=== PATIENT | male | born 1940 | race Caucasian/White ===

== ENCOUNTER → 2024-02-09 08:58 | Outpatient (REF) | payer OTHER, SELFPAY | LOC: PAVMRI 08:58 | PROVIDERS: ATTENDING PHYSICIAN Physician Assistant Medical; FAMILY PHYSICIAN Family Medicine | DX: M48.062 Spinal stenosis, lumbar region with neurogenic claudication (principal); M54.16 Radiculopathy, lumbar region; M47.896 Other spondylosis, lumbar region | CPT/HCPCS: 72148 ==

== ENCOUNTER 2025-01-19 02:37 | Inpatient (IN) | payer OTHER, SELFPAY ==
[2025-01-19] VITALS (28 sets, daily range): BP systolic 125–239; BP diastolic 63–152; BMI 26.9
[2025-01-19 00:58] LABS: ALT (SGPT) 42 U/L (0-50); AST (SGOT) 41 U/L (17-59); Albumin 4.9 g/dl (3.5-5.0); Alkaline Phosphatase 85 U/L (38-126); Blood Urea Nitrogen 28 mg/dl (9-20); Calcium 10.1 mg/dl (8.4-10.2); Carbon Dioxide 29 mmol/L (22-30); Chloride 103 mmol/L (98-107); Glucose 120 mg/dl (70-99); Potassium 4.2 mmol/L (3.5-5.1); Sodium 139 mmol/L (135-145); Total Protein 7.7 g/dl (6.3-8.2); eGFR > 60.00
--- NOTE | 2025-01-19 00:58 | ED.GENMED ---
History of Present Illness
General
Chief Complaint: Chest Pain
Time Seen by Provider: 01/19/25 00:29
History of Present Illness
History of Present Illness:
84-year-old male with history of spinal stenosis presenting to the emergency department for midsternal chest pressure. Patient reports symptoms started this morning while playing pickle ball. He thought it was indigestion, went away after an
antacid, however returned this evening, worsening quality. Pain is nonradiating. Denies vomiting. Denies shortness of breath. Denies any prior cardiac history. Denies history of hypertension. Denies additional acute medical complaints
Past History
Past History
ED Past Medical History: GERD, Hypercholesterolemia, Other (Osteoarthritis, spinal stenosis, kidney stone) and Other (back pain)
ED Past Surgical History: Orthopedic (Left meniscus surgery, fusion of C4-C5, synovial cyst excision)
Social History
Tobacco: Non-smoker
Alcohol: Occasional
Personal:
Living: with family
Employment: Retired
Family History
Family History: Other (Noncontributory)
Phy Exam
Physical Exam
Physical Exam:
General: Well-appearing, no clinical signs of dehydration, nontoxic and in no acute distress
HEENT: protecting airway, no evidence of cyanosis
Resp: No accessory muscle use, no increased work of breathing, lungs clear to auscultation bilaterally
Abd: No distention
Extremities: No deformities, no swelling
Neuro: alert, no focal neurologic deficit
: deferred
Rectal: deferred
Psych: Normal affect
Skin: Intact
Scores
Heart Score for Chest Pain Patients
STEMI patient?: Yes
Course
Orders/Labs/Results
Orders:
Orders
01/19/25 00:17
Electrocardiogram (*1) Urgent
Reason for Study: Chest Pain
Cardiac Monitoring- Treatment ONCE
EKG- Treatment ONCE
IV Insert/Care/Rem.- Treatment PRN
O2 Therapy [RESP] Urgent
Titrate/Wean O2 to maintain O2 sat greater than (%): 90
Special Instructions: Maintain sats >/=90%
Pulse Ox/spot Check [RESP] Urgent
Quantity: 1
Special Instructions: ON ROOM AIR
01/19/25 00:30
Complete Blood Count/With Diff Urgent
Comprehensive Metabolic Panel Urgent
Troponin I Urgent
01/19/25 00:49
Nitroglycerin 100 mg/250 ml [Nitroglycerin Premix] 100 mg in 250 ml .ROUTE .STK-MED
01/19/25 00:54
Heparin 1000 Units/500 ml [Heparin] 1,000 units in 500 ml .ROUTE .STK-MED
Verapamil Injectable [Isoptin/Verapamil Injection] 5 mg .ROUTE .STK-MED ONE
01/19/25 00:55
Heparin Sodium,Porcine/Ns/Pf [Heparin 2000 Units/1000 ml] 2,000 unit in 1,000 ml .ROUTE .STK-MED
Lidocaine HCl/Pf [Xylocaine-Mpf 1% Vial] 100 mg .ROUTE .STK-MED ONE
Nitroglycerin Sublingual [Nitrostat (Sublingual)] 0.4 mg .ROUTE .STK-MED ONE
Nitroglycerin [Tridil] 1,500 mcg .ROUTE .STK-MED ONE
Ticagrelor [Brilinta] 180 mg .ROUTE .STK-MED ONE
01/19/25 00:56
Aspirin Chewable [Low Strength Aspirin] 324 mg .ROUTE .STK-MED ONE
Heparin 5,000 units .ROUTE .STK-MED ONE
01/19/25 00:57
Midazolam HCl [Versed] 2 mg .ROUTE .STK-MED ONE
01/19/25 00:58
Fentanyl Citrate/Pf [Sublimaze] 100 mcg .ROUTE .STK-MED ONE
Heparin 10,000 units .ROUTE .STK-MED ONE
01/19/25 01:11
Nitroglycerin 100 mg/250 ml [Nitroglycerin Premix] 100 mg in 250 ml .ROUTE .STK-MED
Abnormal Lab Results
01/19/25 01/19/25
00:30 01:19
RBC 4.66 L 10^6/uL
(4.70-6.10)
MCV 95.9 H fL
(80.0-94.0)
MCH 32.8 H pg
(27.0-31.0)
MPV 10.5 H fL
(7.4-10.4)
Absolute Monos (auto) 0.7 H 10^3/uL
(0.1-0.6)
Neutrophils % 41.3 L %
(42.2-75.2)
Monocytes % 10.4 H %
(1.7-9.3)
BUN 28 H mg/dl
(9-20)
Glucose 120 H mg/dl
(70-99)
Troponin I 0.182 H* ng/ml
POC ACT Low Range 285 H Seconds
(116-155)
01/19/25 00:30
01/19/25 00:30
Vital Signs
Initial and Last Documented VS:
Initial Vital Signs
Pulse Resp BP Pulse Ox
58 12 239/97 97
01/19/25 00:27 01/19/25 00:27 01/19/25 00:27 01/19/25 00:27
Last Documented Vital Signs
Pulse Resp BP Pulse Ox
54 13 161/90 95
01/19/25 00:57 01/19/25 00:57 01/19/25 00:57 01/19/25 01:00
MDM/Problems Addressed
MDM/Problems Addressed:
84-year-old male with history of spinal stenosis presenting for midsternal chest pressure. Vital signs on arrival significant for hypertension.
On exam patient resting comfortably. Patient initially evaluated in triage with EKG obtained upon arrival, concerning for STEMI with ST elevation laterally and ST depressions inferiorly. This does appear acutely changed from prior EKG in 2019.
For this reason, STEMI alert was called. Did discuss with cardiology on-call, Dr. Zuniga who will come in to evaluate patient. Patient is markedly hypertensive, however clinically less suspicious for dissection. Will start patient on
aspirin/Brilinta/heparin and start patient on nitro.
00:55 - Cardiology to bedside with patient plan to catheterization lab
*Pulse Oximetry
SaO2: 93
Patient hypoxic: no
*EKG
Interpreted by ED Provider?: Yes
EKG Intrepretation Date: 01/19/25
EKG Intrepretation Time: 00:59
Interpretation: abnormal
Comparison EKG: changes noted
Heart Rate: 59
Rate: normal
Rhythm: sinus
[place]: normal axis
Interval: normal interval
QRS Pattern: normal QRS
Ischemia: ST elevation (laterally with inferior depressions)
*Critical Care Note
Total Time (30-74mins, 75-104mins- exclusive of procedures): Not Applicable
ED Attending Note
-
Portions of this chart may have been created with voice recognition software.� Occasional wrong word or��sound alike� substitutions may have occurred due to the inherent limitations of voice recognition software.
Discharge Plan
Departure
Patient Disposition: Admit
Date of Disposition: 01/19/25
Time of Disposition: 00:38
Presentation/result/management discussed w/ accepting MD/DO: Dr. Lea, cardiology
Patient with high blood pressure during this ER visit?: Yes
Condition: Critical
Discharge Problem:
ST elevation (STEMI) myocardial infarction
Interventions
Interventions:
*Risk Screen - Suicide Last Done: 01/19/25 00:22
*General Assessment Last Done: 01/19/25 00:22
*Neglect/Abuse Screening Last Done: 01/19/25 00:22
*ED- Fall Risk Assessment Last Done: 01/19/25 00:22
*ED COVID-19 Vaccine History Last Done: 01/19/25 00:22
*Nursing Disposition Last Done: 01/19/25 01:12
Discharge Date and Time
Discharge Date/Time: 01/19/25 01:12
[2025-01-19 00:59] LABS: Hematocrit 44.7 % (39.0-52.0); Hemoglobin 15.3 g/dL (13.0-18.0); Mean Corp Hgb Conc. 34.2 g/dL (33.0-37.0); Mean Corpuscular Volume 95.9 fL (80.0-94.0); Nucleated Red Blood Cells % 0 % (-); Platelet Count 179 10^3/uL (130-400); Red Cell Dist. Width 12.9 % (11.5-14.5)
[2025-01-19 01:12] LABS: Troponin I 0.182 ng/ml
[2025-01-19 01:37] LABS: ACT-LR - POC 285 Seconds (116-155)
--- NOTE | 2025-01-19 02:19 | CON.CAR ---
Consultation
Consultation Request
Date/Time Consultation Requested: 01/19/25
Date/Time Consultation Performed: 1230
Requesting Provider: Dr. Yandy Hill
Performing Provider: Dr. Zhou Lea
Reason for Consultation: anterior STEMI
Medical History
-
Chief Complaint: chest pain
History of Present Illness:
84-year-old male with history of spinal stenosis, HLD, GERD, arthritis, presenting to the emergency department for midsternal chest pressure. Patient reports symptoms started this morning while playing pickle ball. He thought it was indigestion, and
after taking an antacid the pain went away. Pain returned this evening at rest and was more severe, prompting him to come to the ED. Pain is nonradiating, constant. He denies N/V, diaphoresis, shortness of breath. Never had similar symptoms before.
Denies tearing sensation or back pain. Denies any prior cardiac history, HTN, HLD, DM. Non smoker.
In the ED he was hypertensive. VS otherwise stable. Initial labs notable for Cr 0.8, Trop 0.182.
EKG sinus with anterior RYAN and inferior reciprocal changes.
He was given heparin bolus, ASA 325, and ticagrelor 180. He given SLNx2 with near complete resolution of pain.
Past Medical History
Past Medical History: GERD and Hypercholesterolemia
Past Surgical History: None
Social History
Tobacco: Non-Smoker
Family History
Family History: Reviewed & Not Pertinent
Allergies / Home Medications
Allergy/AdvReac Type Severity Reaction Status Date / Time
Sulfa (Sulfonamide Allergy Hives Verified 01/19/25 00:21
Antibiotics)
�Medication �Instructions �Recorded �Confirmed �Type
gabapentin 300 mg capsule 300 mg PO HS 12/31/14 09/25/19 History
Tylenol #4 1 tab PO .3XSWEEKLY PRN prior to 09/25/19 09/25/19 History
playing sports
meloxicam 7.5 mg tablet 7.5 mg PO DAILY 09/25/19 09/25/19 History
Review of Systems
-
Cardiac: Chest Pain
Physical Exam
Vital Signs
Pulse Resp BP Pulse Ox
54 13 161/90 95
01/19/25 00:57 01/19/25 00:57 01/19/25 00:57 01/19/25 01:00
Lab Results
01/19/25 00:30
01/19/25 00:30
Troponin I 0.182 ng/ml H* 01/19/25 00:30
Physical Exam
General: No Apparent Distress
Respiratory: Clear
Cardiac: S1/S2 and Regular Rhythm
Skin: Warm
Neuro: AO x 3
Psych: Calm
Impression / Plan
-
84M in good health with HLD but no other CV risk factors presenting with chest pain, elevated troponin, and anterior RYAN. Presentation concerning for acute occlusive OR. Aortic dissection less likely but will consider CTA if cath unrevealing given
severe HTN on initial arrival. Further recommendations to follow pending cath results.
Data Reviewed
-
EKG: Tracing Personally Visualized and interpreted, Report Reviewed by me, Discussed with Physician, Discussed with Nurse, Discussed with Patient and Discussed with Family
Labs: Labs Reviewed by me, Discussed with Physician, Discussed with Nurse, Discussed with Patient and Discussed with Family
Critical Care Time (in minutes): 40
--- NOTE | 2025-01-19 02:28 | ITS.CL.PN ---
Addendum entered and electronically signed by Trevor Lea MD 01/23/25 12:38:
Corrected procedure list to reflect that IVUS of LAD, not iFR of LAD, was performed:
PROCEDURE(S):
1. left heart catheterization
2. coronary angiography
3. IVUS LAD
4. PCI with AHSAN to LAD
Original Note:
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
Procedure
Procedure Note:
CARDIAC CATHETERIZATION REPORT
Date of Procedure: 01/19/2025
Referring: DR. Yandy Hill DO
Indication: anterior STEMI
PROCEDURE(S)
1. left heart catheterization
2. coronary angiography
3. iFR LAD
4. PCI with AHSAN to LAD
ACCESS: 6F right radial artery (closure: radial band)
CATHETERS
1. 6F JR4
2. 6F JL4
3. 6F EBU3.75 guide
MODERATE SEDATION: 60 minutes of moderate sedation was utilized. An independent emergency medical service coordinator was present to assist with and help manage the patient's level of consciousness and physiologic status.
HEMODYNAMIC DATA
LV 151/1 (EDP 23) mmHg
AO 164/69 (mean 103) mmHg
CORONARY ANGIOGRAPHY
Dominance: Right
LM: Large, normal
LAD: Large vessel giving rise to a large D1 and large D2. There is a 100% thrombotic occlusion in the proximal aspect of the D2 with diffuse plaque extending distally and proximally back into the LAD proper. The apical LAD becomes atretic distally
and is totally occluded before the apex. The apex fills via L-L collaterals from the D2 and R-L collaterals from the RPDA.
LCx: Moderate caliber vessel giving rise to a moderate caliber ramus/OM1 and moderate caliber OM2. There is diffuse mild disease.
RCA: Large vessel giving rise to a large RPDA, small RPL1, small RPL2, and moderate caliber RPL3. There is mild ostial disease, a focal mild stenosis at the crux, and a focal 70% stenosis in the distal aspect of the RPDA.
RADIATION: dose 1032 mGy; DAP 45 Gy*cm2; fluoroscopy time 18.1 min
PCI with AHSAN to LAD
Heparin was given to achieve ACT greater than 300. The left main was engaged with a EBU 3.75 guide catheter and a Runthrough wire placed in the D2. Initial lesion preparation was performed with a 2.0 mm semicompliant balloon with full expansion and
jain of distal flow. IVUS was performed demonstrating reference vessel diameter of 3.5-4.0 mm in the LAD and 2.5-3.0 mm in the D2 with diffuse plaque extending back to the ostium of the diagonal and also significant plaque burden in the LAD
extending between D1 and D2. Thus, the decision was made to perform crossover stenting from the LAD into the D2. A protection wire was placed in the apical LAD. A 2.5 x 38 mm Marne Jones drug-eluting stent was deployed followed by proximal
optimization in the LAD with a 3.5 x 8 mm NC balloon. The LAD wire was pulled back and rewired through stent struts. Postdilation of the remainder of the stent within the D2 proper was performed with a 2.5 mm NC balloon to 16 laura. IVUS was then
repeated and demonstrated mild underexpansion and undersizing of the stent in both the diagonal and LAD. Thus, further postdilation was performed with a 2.75 mm NC balloon to 16 laura in the diagonal (20 laura in the midportion of the lesion) and a 4.0
x 6 mm NC balloon in the LAD to 12 laura. Final angiographic result was outstanding. The wire and guide were removed and an additional angiography of the RCA performed to rule out high-grade stenosis in a previously identified tortuous segment with
questionable severe disease. The patient tolerated the procedure well.
CONCLUSIONS
1. Mildly elevated LV filling pressure and no aortic stenosis
2. 100% thrombotic occlusion of the D2 in setting of anterior STEMI
3. Successful PCI with AHSAN to LAD-D2 (2.5x38 mm Pedro Jones post-dilated to 4.0 mm in the LAD and 2.75 mm in the D2).
RECOMMENDATIONS
1. DAPT with ASA/ticagrelor for 1 year
2. Aggressive secondary prevention of coronary artery disease with high intensity statin and additional lipid lower medication to achieve LDL<55
3. Hold beta tima given sinus bradycardia
4. Low dose KARIE inhibitor
5. Further GDMT pending TTE in AM
6. Check lipids, Lp(a), A1c
7. Trend trop to peak
8. Cardiac rehab
Copy to: Dr. Chris Moreira, (PCP)
Signed: Trevor Lea MD, PhD
[2025-01-19 03:28] LABS: Hematocrit 39.2 % (39.0-52.0); Hemoglobin 13.4 g/dL (13.0-18.0); Mean Corp Hgb Conc. 34.2 g/dL (33.0-37.0); Mean Corpuscular Volume 94.5 fL (80.0-94.0); Nucleated Red Blood Cells % 0 % (-); Platelet Count 168 10^3/uL (130-400); Red Cell Dist. Width 13.0 % (11.5-14.5)
[2025-01-19] MEDS: CRESTOR 20 MG PO ×2 (03:29→17:25)
[2025-01-19] MEDS: NSS 1000 IV (03:29)
[2025-01-19 03:39] LABS: Blood Urea Nitrogen 24 mg/dl (9-20); Calcium 9.3 mg/dl (8.4-10.2); Carbon Dioxide 28 mmol/L (22-30); Chloride 105 mmol/L (98-107); Glucose 113 mg/dl (70-99); HDL Cholesterol 37 mg/dl; LDL Cholesterol, Calculated 145 mg/dl; Potassium 4.0 mmol/L (3.5-5.1); Sodium 135 mmol/L (135-145); Very Low Density Lipoprotein 11 mg/dl (0-30); eGFR > 60.00
[2025-01-19 03:56] LABS: Troponin I 0.843 ng/ml
--- NOTE | 2025-01-19 04:12 | PTCARENOTE ---
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 HR SB w/ 1st degree AVB on telemetry. AAOx3. NSS gtt infusing as ordered. R radial band on - R hand initially dusky and cool. Now pink and warm. R radial pulse palpable. Surrounding site soft, no hematoma. Educated
pt on activity restrictions r/t cardiac cath + stent. Labs drawn and sent. EKG obtained. Pt denies any pain.
Pt belongings w/ pt. Pt oriented to hospital and unit. Call bahena within reach.
[2025-01-19] MEDS: NEURONTIN 100 MG PO (05:17)
--- NOTE | 2025-01-19 05:42 | PTCARENOTE ---
Pt remains CP free. Removing air from R radial band as charted in worklist. Surrounding site remains soft, no hematoma. Ecchymosis noted under radial band. R radial pulse palpable.
Pt requesting extra dose of gabapentin for restless legs. Pt states he did take his normal dose of 300mg 01/18 at 1900 but stated that if restless legs 'start up again' in the night, he usually takes an extra dose of gabapentin. 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 Refusing
tylenol, stating 'That will not work'. One time dose 100mg gabapentin ordered and administered.
[2025-01-19] MEDS: ZESTRIL 5 MG PO (08:55)
[2025-01-19 09:08] LABS: ACT-LR - POC > 397 Seconds (116-155)
[2025-01-19 10:03] LABS: Troponin I 8.650 ng/ml
[2025-01-19 10:06] LABS: Glycohemoglobin (HgbA1c) 5.8 % (4.0-5.9)
[2025-01-19] MEDS: BRILINTA 90 MG PO ×2 (10:17→19:45)
--- NOTE | 2025-01-19 10:34 | CM ---
Initial assessment completed with patient who lives with his in a 1 story plus basement ranch home with 2 steps to enter. 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 No DME. No in-home services. Does have HC-POA. Was in the
[employer] but no VA benefits. No psychiatric hospitalizations. PCP is Dr. Rony Churchill with [facility]. Pharmacy is [facility] on [address] in [place]. Discharge POC: Anticipate home with no needs.
--- NOTE | 2025-01-19 10:42 | PTCARENOTE ---
pt oob in chair this am , no complaints of chest pain , following troponin levels , Sinus zainab , sinus rhythm on monitor with PACs , IVU level of care
[2025-01-19] MEDS: LOW STRENGTH ASPIRIN 81 MG PO (11:25)
--- NOTE | 2025-01-19 15:37 | CARDSERVLU ---
Echocardiogram with Lumason completed after protocol screening completed. Allergies verified.
Patent IV site: RT AC
IV site flushed with 0.9% NaCl pre and post administration.
Diluted bolus method utilized to enhance visualization of ventricular ramos.
Total volume given: _3.5__ mL
Patient tolerated all procedures well without complications.
[2025-01-19 15:42] LABS: Troponin I 9.690 ng/ml
--- NOTE | 2025-01-19 16:04 | PTCARENOTE ---
15:00 troponin level of 9.69 , result give to Dr Lea , pt remains asymptomatic
--- NOTE | 2025-01-19 16:34 | PTCARENOTE ---
pt to be transfered to room 2247 , report given to receiving RN
--- NOTE | 2025-01-19 17:11 | PTCARENOTE ---
patient transferred from ICU.monitor placed, SB, VSS. lung sánchez clear on RA o2 sat 98%. right radial dsg. D/I, distal pulse palpable. no edema noted in bilat. lower extremities. patient sitting in chair eating dinner, call bahena within reach.
[2025-01-19] MEDS: NEURONTIN 300 MG PO (19:45)
--- NOTE | 2025-01-19 20:48 | PTCARENOTE ---
Assumed care of patient at change of shift. Ambulating self in room, AAOx4. VSS. Denies any chest pain or SOB. Tele remains SB-SR w/ occasional PACs. Right radial dressing intact, no hematoma noted at this time. CAD packet given, educated pt.
Reviewed POC w/ patient. Call bahena in reach.
[2025-01-20] VITALS (8 sets, daily range): BP systolic 132–165; BP diastolic 74–128
--- NOTE | 2025-01-20 08:00 | PTCARENOTE ---
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
[2025-01-20] MEDS: ZESTRIL 5 MG PO (08:02)
[2025-01-20] MEDS: BRILINTA 90 MG PO ×2 (08:02→20:15)
[2025-01-20] MEDS: LOW STRENGTH ASPIRIN 81 MG PO (08:02)
--- NOTE | 2025-01-20 09:38 | CM ---
Addendum entered by Katherin Samayoa 01/20/25 15:11:
Met with Mr. العلي to review [facility] is only opened tomorrow from 10:00 a.m. to 2:00 p.m. Telephone call to [facility] to inform them Mr. العلي is using the Good Rx Coupon. Faxed the Good Rx. Coupon to [facility]. Mr.. Rod will
ask his spouse to see if she can pick-up the medication today.
Original Note:
Reviewed chart. Met with Mr. العلي to review discharge plans. He states odette is feeling well and maybe able to go hoe soon. He states prior to admission he reside with his spouse in a one story home with a basement. He states he has two steps to
enter. He states prior to admission he was independent with ambulation and adls. He states he does not have ay DME in the home. He states he has a prescription plan and uses [facility]. Telephone call to his insurance to check on coverage for
Brilinta or Ticagrelor. Brilinta is covered by his insurance but his co-pay is $500.00 a month. Ticagrelor is not covered by his insurance. He can use the Good RX coupon for Ticagrelor for $33.00 a month. Reviewed co-pays and Good Rx coupon. He is
agreeable to using the Good Rx coupon. Gave him the Good Rx coupon. Telephone call to [facility] to check if Ticagrelor 90 mg po bid is in stock. [facility] is in stock. N.P. sent script to [facility]. Medical work-up in progress. The
discharge plan is to return home with his spouse when medically stable.
[2025-01-20 10:49] LABS: Troponin I 4.120 ng/ml
--- NOTE | 2025-01-20 10:56 | PTCARENOTE ---
Pt. was ordered EKG, EKG showed STEMI, alerted [employer] Hdz and let her know the troponin would be drawn. Pt's troponin came back 4.120 which is down from earlier troponin which was 9.960. Pt is asymptomatic and is currently SB on the monitor.
Will continue to monitor for any changes.
--- NOTE | 2025-01-20 12:28 | W.PN.CD ---
Today's Communication / Plan
-
Maintain DAPT.
Increase lisinopril to 10 mg daily.
Repeat lipid panel in 3 months. Goal LDL < 55.
Discharge planning (probably tomorrow).
Impression / Plan
-
Impression/Plan: 84M in previously good health with HLD but no other CV risk factors admitted with anterolateral STEMI.
#CAD/Anterolateral STEMI
-Acute, threat to life.
-Cardiac catheterization showed acute occlusion of a medium sized D2 ([employer] [place] 2.5 x 38 AHSAN) with reduction in stenosis to 0%, restoring STEVE III flow.
-Troponin peaked at 9.690.
-Echo shows LAD territory hypokinesis with preserved systolic function.
-DAPT with aspirin and ticagrelor for at least 12 months, followed by aspirin indefinitely.
-Aggressive secondary prevention with high dose, high potency statin.
-OMT/GDMT as hemodynamics will tolerate.
#HLD
-Chronic.
-Total cholesterol = 193, LDL = 145, HDL = 37, Triglycerides = 58.
-Rosuvastatin 20 mg daily started.
-Repeat lipid panel in 3 months. Goal LDL < 55.
#Hypertension
-New diagnosis.
-BP is uncontrolled.
-Increase lisinopril to 10 mg daily.
-Consider addition of CCB.
Subjective/Interval History:
STEMI yesterday morning. D2 treated with primary PCI.
Relative bradycardia at baseline which prohibits beta tima use.
Patient is hypertensive at baseline (137-176/63-114).
DATA:
Cardiac Catheterization/PCI, 01/19/2025:
CORONARY ANGIOGRAPHY
Dominance: Right
LM: Large, normal
LAD: Large vessel giving rise to a large D1 and large D2. There is a 100% thrombotic occlusion in the proximal aspect of the D2 with diffuse plaque extending distally and proximally back into the LAD proper. The apical LAD becomes atretic distally
and is totally occluded before the apex. The apex fills via L-L collaterals from the D2 and R-L collaterals from the RPDA.
LCx: Moderate caliber vessel giving rise to a moderate caliber ramus/OM1 and moderate caliber OM2. There is diffuse mild disease.
RCA: Large vessel giving rise to a large RPDA, small RPL1, small RPL2, and moderate caliber RPL3. There is mild ostial disease, a focal mild stenosis at the crux, and a focal 70% stenosis in the distal aspect of the RPDA.
CONCLUSIONS
1. Mildly elevated LV filling pressure and no aortic stenosis
2. 100% thrombotic occlusion of the D2 in setting of anterior STEMI
3. Successful PCI with AHSAN to LAD-D2 (2.5x38 mm [place] Gre[place] post-dilated to 4.0 mm in the LAD and 2.75 mm in the D2).
TTE, 01/19/2025:
SUMMARY
1. Normal biventricular size and function.
2. LVEF is 61% by Aparicio's biplane method of discs. LAD territory hypokinesis.
3. No significant valvular disease. Insufficient TR for estimation of PASP.
4. No prior study available for comparison.
Physical Exam
Vital Signs/Labs
Vital Signs
Temp Pulse Resp BP Pulse Ox
36.9 C 56 13 148/85 98
01/20/25 11:16 01/20/25 12:18 01/20/25 12:18 01/20/25 12:18 01/20/25 12:18
01/19/25 01/20/25 01/21/25
11:59 11:59 11:59
Actual Weight 82.5 kg
01/19/25 03:01
01/19/25 03:01
Triglycerides 58 mg/dl (10-149) 01/19/25 03:01
LDL Cholesterol, Calc 145 mg/dl 01/19/25 03:01
VLDL Cholesterol, Calc 11 mg/dl (0-30) 01/19/25 03:01
HDL Cholesterol 37 mg/dl 01/19/25 03:01
LAB Results
01/19/25 01/19/25 01/19/25
00:30 03:01 09:04
Troponin I 0.182 H* 0.843 H* D 8.650 H* D
01/19/25 01/20/25
15:03 10:14
Troponin I 9.690 H* 4.120 H*
Physical Exam
Constitutional: No acute distress and Comfortable
EENT: Anicteric and Moist mucous membranes
Cardiovascular: Rhythm & rate is regular, Pedal edema is absent, JVD pressure is normal, S1S2 is normal and Murmur/rub/gallop absent
Respiratory: Respiratory effort normal, Lungs clear to auscul., Wheeze Absent, Crackles Absent and Rhonchi Absent
GI: Soft, Distention absent, Flat, Non tender and Normal bowel sounds
Neuro/Psych: AO x 3
Other: Cath Site (Right radial access site is C/D/I.)
Data Reviewed
-
Date of Service: January 20, 2025
Medical Decision Making: Reviewed Test Results, Independent Historian Assessment and Test Interpretation
EKG: Tracing Personally Visualized and interpreted and Report Reviewed by me
Echo: Report Reviewed by me
X-Ray/CT/US/MRI/NUC/PET: Image Personally Visualized and interpreted and Report Reviewed by me
Medical Tests (PFT, Pathology etc): Image Personally Visualized and interpreted, Report Reviewed by me and Discussed with Patient
Labs: Labs Reviewed by me
Old Records: Reviewed
[2025-01-20] MEDS: CRESTOR 20 MG PO (18:20)
[2025-01-20] MEDS: LOVENOX 40 MG SC (18:20)
--- NOTE | 2025-01-20 18:38 | PTCARENOTE ---
patient came out to desk and stated that he cannot find his wallet, he said his and daughter looked for wallet at home. wallet is not with his belongings. called ICU, they don't have the wallet, called security, they do not have the wallet.
[2025-01-20] MEDS: NEURONTIN 300 MG PO (20:15)
--- NOTE | 2025-01-20 21:21 | PTCARENOTE ---
Rec'd pt at change of shift. Pt AAO*3, VSS, ans SR on tele monitor. Pt denies any pain or discomfort but reports RLS and gabapentin given as ordered. R radial site CDI. Education provided on purpose of birlinta and pt verbalizes understanding.
Pt now resting with call bahena in reach. See MAR and flowchart for full pt care and assessment.
[2025-01-21 01:58] LABS: Lipoprotein a (Lp a) 57 mg/dL (<=29)
[2025-01-21 03:12] VITALS: BP 142/78
[2025-01-21 03:13] VITALS: BMI 26.4
[2025-01-21 03:41] LABS: Hematocrit 36.9 % (39.0-52.0); Hemoglobin 12.7 g/dL (13.0-18.0); Mean Corp Hgb Conc. 34.4 g/dL (33.0-37.0); Mean Corpuscular Volume 91.6 fL (80.0-94.0); Platelet Count 160 10^3/uL (130-400); Red Cell Dist. Width 13.0 % (11.5-14.5)
[2025-01-21 04:04] LABS: Blood Urea Nitrogen 26 mg/dl (9-20); Calcium 9.3 mg/dl (8.4-10.2); Carbon Dioxide 22 mmol/L (22-30); Chloride 109 mmol/L (98-107); Estimated Creatinine Clearance 76 ml/min; Glucose 108 mg/dl (70-99); Potassium 4.2 mmol/L (3.5-5.1); Sodium 136 mmol/L (135-145); eGFR > 60.00
[2025-01-21 07:18] VITALS: BP 138/98
--- NOTE | 2025-01-21 07:26 | W.PN.CD ---
Today's Communication / Plan
-
Beta tima not started due to bradycardia.
Stable for outpatient follow up.
Discharge.
Cardiac rehab.
Impression / Plan
-
Impression/Plan: 84M in previously good health with HLD but no other CV risk factors admitted with anterolateral STEMI.
#CAD/Anterolateral STEMI
-Acute, threat to life.
-Cardiac catheterization showed acute occlusion of a medium sized D2 ([employer] [place] 2.5 x 38 AHSAN) with reduction in stenosis to 0%, restoring STEVE III flow.
-Troponin peaked at 9.690.
-Echo shows LAD territory hypokinesis with preserved systolic function.
-DAPT with aspirin and ticagrelor for at least 12 months, followed by aspirin indefinitely.
-Aggressive secondary prevention with high dose, high potency statin.
-OMT/GDMT as hemodynamics will tolerate. Beta tima contraindicated due to relative bradycardia.
-Referred to cardiac rehab.
#HLD
-Chronic.
-Total cholesterol = 193, LDL = 145, HDL = 37, Triglycerides = 58.
-Rosuvastatin 20 mg daily started.
-Repeat lipid panel in 3 months. Goal LDL < 55.
#Hypertension
-New diagnosis.
-BP is mildly elevated.
-Lisinopril 10 mg daily.
-Consider outpatient addition of CCB.
#Dispo
-IVU status.
-Full code.
-Discharge.
Subjective/Interval History:
No acute events.
No subjective complaints.
EKG stable.
DATA:
Cardiac Catheterization/PCI, 01/19/2025:
CORONARY ANGIOGRAPHY
Dominance: Right
LM: Large, normal
LAD: Large vessel giving rise to a large D1 and large D2. There is a 100% thrombotic occlusion in the proximal aspect of the D2 with diffuse plaque extending distally and proximally back into the LAD proper. The apical LAD becomes atretic distally
and is totally occluded before the apex. The apex fills via L-L collaterals from the D2 and R-L collaterals from the RPDA.
LCx: Moderate caliber vessel giving rise to a moderate caliber ramus/OM1 and moderate caliber OM2. There is diffuse mild disease.
RCA: Large vessel giving rise to a large RPDA, small RPL1, small RPL2, and moderate caliber RPL3. There is mild ostial disease, a focal mild stenosis at the crux, and a focal 70% stenosis in the distal aspect of the RPDA.
CONCLUSIONS
1. Mildly elevated LV filling pressure and no aortic stenosis
2. 100% thrombotic occlusion of the D2 in setting of anterior STEMI
3. Successful PCI with AHSAN to LAD-D2 (2.5x38 mm [place] post-dilated to 4.0 mm in the LAD and 2.75 mm in the D2).
TTE, 01/19/2025:
SUMMARY
1. Normal biventricular size and function.
2. LVEF is 61% by Aparicio's biplane method of discs. LAD territory hypokinesis.
3. No significant valvular disease. Insufficient TR for estimation of PASP.
4. No prior study available for comparison.
Physical Exam
Vital Signs/Labs
Vital Signs
Temp Pulse Resp BP Pulse Ox
36.6 C 52 18 142/78 99
01/21/25 07:20 01/21/25 04:00 01/21/25 07:20 01/21/25 03:12 01/21/25 07:20
01/19/25 01/20/25 01/21/25
11:59 11:59 11:59
Actual Weight 82.5 kg 81.1 kg
01/21/25 03:23
01/21/25 03:23
Triglycerides 58 mg/dl (10-149) 01/19/25 03:01
LDL Cholesterol, Calc 145 mg/dl 01/19/25 03:01
VLDL Cholesterol, Calc 11 mg/dl (0-30) 01/19/25 03:01
HDL Cholesterol 37 mg/dl 01/19/25 03:01
LAB Results
01/19/25 01/19/25 01/19/25
00:30 03:01 09:04
Troponin I 0.182 H* 0.843 H* D 8.650 H* D
01/19/25 01/20/25
15:03 10:14
Troponin I 9.690 H* 4.120 H*
Physical Exam
Constitutional: No acute distress and Comfortable
EENT: Anicteric and Moist mucous membranes
Cardiovascular: Rhythm & rate is regular, Pedal edema is absent, JVD pressure is normal, S1S2 is normal and Murmur/rub/gallop absent
Respiratory: Respiratory effort normal, Lungs clear to auscul., Wheeze Absent, Crackles Absent and Rhonchi Absent
GI: Soft, Distention absent, Flat, Non tender and Normal bowel sounds
Neuro/Psych: AO x 3
Other: Cath Site (Right radial access site is C/D/I.)
Data Reviewed
-
Date of Service: January 21, 2025
Medical Decision Making: Reviewed Test Results, Independent Historian Assessment and Test Interpretation
EKG: Tracing Personally Visualized and interpreted and Report Reviewed by me
Echo: Tracing Personally Visualized and interpreted and Report Reviewed by me
X-Ray/CT/US/MRI/NUC/PET: Image Personally Visualized and interpreted and Report Reviewed by me
Medical Tests (PFT, Pathology etc): Image Personally Visualized and interpreted and Report Reviewed by me
Labs: Labs Reviewed by me
Old Records: Reviewed
[2025-01-21] MEDS: BRILINTA 90 MG PO (08:00)
[2025-01-21] MEDS: ZESTRIL 10 MG PO (08:00)
[2025-01-21] MEDS: LOW STRENGTH ASPIRIN 81 MG PO (08:01)
--- NOTE | 2025-01-21 08:25 | PTCARENOTE ---
Rec'd Pt, sitting OOB in chair, denies pain, BP 138/98 prior to giving meds. Pt anxious to go home today. R radial dsg removed, site clean and dry.
--- NOTE | 2025-01-21 09:44 | W.DS.TRANS ---
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
-
Discharge Instructions:
Discharge Diagnosis/Procedures STEMI, s/p angioplasty with stent to Left
Anterior Descending artery
Diet Low Cholesterol
Activity No strenuous activity
Additional Activity For 1 week
Other Services Cardiac Rehab
Instructions:
Stand-Alone Forms: DC Instructions- Cath/EP Lab
Changes to Home Medications: Yes
Discharge Medications:
DC Medications w/original date entered in [facility]
gabapentin 300 mg capsule 300 mg PO HS Neurological Condition 12/31/14
Tylenol #4 1 tab PO .3XSWEEKLY PRN prior to playing sports 09/25/19
meloxicam 7.5 mg tablet 7.5 mg PO DAILY Pain 09/25/19
aspirin 81 mg chewable tablet 81 mg PO DAILY #0 tabs 01/20/25
lisinopril 10 mg tablet 10 mg PO DAILY #30 tabs 01/20/25
rosuvastatin 20 mg tablet 20 mg PO QPM #30 tabs 01/20/25
ticagrelor 90 mg tablet 90 mg PO BID #60 tabs 01/20/25
Home Medication Changes
Start aspirin 81 mg daily.
Start lisinopril 10 mg daily.
Start rosuvastatin 20 mg daily.
Start ticagrelor 90 mg twice daily.
Pending Results: No
== END 2025-01-21 10:49 | disposition home or self-care (01) | DRG 322 ==
LOC: IVU 02:37
PROVIDERS: Nurse Practitioner; ADMITTING PHYSICIAN Student in an Organized Health Care Education/Training Program; EMERGENCY PHYSICIAN Student in an Organized Health Care Education/Training Program; FAMILY PHYSICIAN Family Medicine
PROC: 027034Z Dilation of Coronary Artery, One Artery with Drug-eluting Intraluminal Device, Percutaneous Approach (ICD-10-PCS; 2025-01-19)
PROC: 4A023N7 Measurement of Cardiac Sampling and Pressure, Left Heart, Percutaneous Approach (ICD-10-PCS; 2025-01-19)
PROC: B240ZZ3 Ultrasonography of Single Coronary Artery, Intravascular (ICD-10-PCS; 2025-01-19)
PROC: B2111ZZ Fluoroscopy of Multiple Coronary Arteries using Low Osmolar Contrast (ICD-10-PCS; 2025-01-19)
DX: I21.09 ST elevation (STEMI) myocardial infarction involving other coronary artery of anterior wall (principal); M19.90 Unspecified osteoarthritis, unspecified site; M48.00 Spinal stenosis, site unspecified; E78.00 Pure hypercholesterolemia, unspecified; R73.03 Prediabetes; G25.81 Restless legs syndrome; K21.9 Gastro-esophageal reflux disease without esophagitis; I10 Essential (primary) hypertension; I25.10 Atherosclerotic heart disease of native coronary artery without angina pectoris; Z88.2 Allergy status to sulfonamides; Z96.82 Presence of neurostimulator
CPT/HCPCS: 80048; 80053; 80061; 83036; 83695; 84484; 85025; 85027; 85347; 92978; 93005; 93306; 93458; 94760; 99152; 99153; 99284; C1725; C1753; C1769; C1874; C1894; C9606; Q9950; Q9967

== ENCOUNTER 2025-02-23 14:45 | Outpatient (RCR) | payer OTHER, SELFPAY | END 2025-02-23 23:59 | disposition home or self-care (01) | LOC: CRHB 14:45 | PROVIDERS: ATTENDING PHYSICIAN Student in an Organized Health Care Education/Training Program | DX: I21.01 ST elevation (STEMI) myocardial infarction involving left main coronary artery (principal); Z95.5 Presence of coronary angioplasty implant and graft; I25.2 Old myocardial infarction; I25.10 Atherosclerotic heart disease of native coronary artery without angina pectoris | CPT/HCPCS: G0422; G0423 ==